=== PATIENT | male | born 1985 | race Caucasian/White ===

== ENCOUNTER → 2019-12-18 | Outpatient (CLI) | payer OTHER ==
--- NOTE | 2019-12-18 18:20 | REP ---
Chest x-ray: Two views. History: Cough. Findings: There is a dense infiltrate in the left lower lobe consistent with pneumonia. Remaining lung mathur are clear. Heart is not enlarged. Pulmonary vasculature is not increased. No significant bony abnormality. Impression: Left lower lobe infiltrate consistent with pneumonia. Electronically Signed by Aroldo Mcdonald MD 12/18/2019 06:12 P
== END ==
LOC: M WUC 15:08
PROVIDERS: ATTEND Physician Assistant
DX: R05 Cough (principal); R91.8 Other nonspecific abnormal finding of lung field

== ENCOUNTER → 2025-06-29 | Outpatient (REF) | payer OTHER ==
[2025-06-29 14:22] LABS: SEMEN APPEARANCE OPAQUE (OPAQUE); SEMEN VISCOSITY LIQUID (LIQUID); SEMEN VOLUME 4.4 ml (2.0-5.0); WBC CONCENTRATION <=1 M/ml (<=1 M/ml)
== END ==
LOC: M SMT 14:13
PROVIDERS: ATTEND Urology
DX: Z30.8 Encounter for other contraceptive management (principal)

== ENCOUNTER → 2025-07-27 | Outpatient (REF) | payer OTHER ==
[2025-07-27 13:20] LABS: SEMEN APPEARANCE OPAQUE (OPAQUE); SEMEN VISCOSITY LIQUID (LIQUID); SEMEN VOLUME 3.0 ml (2.0-5.0); WBC CONCENTRATION <=1 M/ml (<=1 M/ml)
== END ==
LOC: M SMT 12:13
PROVIDERS: ATTEND Urology
DX: Z30.8 Encounter for other contraceptive management (principal)